=== PATIENT | male | born 1985 | race Caucasian/White ===

== ENCOUNTER → 2024-06-07 07:39 | Outpatient (REF) | payer OTHER, SELFPAY | LOC: HWRAD 07:39 | PROVIDERS: ATTENDING PHYSICIAN Internal Medicine Hematology & Oncology; FAMILY PHYSICIAN Family Medicine | DX: R16.1 Splenomegaly, not elsewhere classified (principal); C77.2 Secondary and unspecified malignant neoplasm of intra-abdominal lymph nodes; C62.11 Malignant neoplasm of descended right testis | CPT/HCPCS: 71260; 74177; Q9967 ==

== ENCOUNTER → 2024-12-06 08:54 | Outpatient (REF) | payer OTHER, SELFPAY | LOC: HWRAD 08:54 | PROVIDERS: ATTENDING PHYSICIAN Internal Medicine Hematology & Oncology; FAMILY PHYSICIAN Family Medicine | DX: C62.11 Malignant neoplasm of descended right testis (principal); R16.1 Splenomegaly, not elsewhere classified; C77.2 Secondary and unspecified malignant neoplasm of intra-abdominal lymph nodes; Z51.81 Encounter for therapeutic drug level monitoring | CPT/HCPCS: 71046 ==

== ENCOUNTER → 2025-06-20 07:24 | Outpatient (REF) | payer OTHER, SELFPAY | LOC: RAD 07:24 | PROVIDERS: ATTENDING PHYSICIAN Internal Medicine Hematology & Oncology; FAMILY PHYSICIAN Family Medicine | DX: C62.11 Malignant neoplasm of descended right testis (principal); R16.1 Splenomegaly, not elsewhere classified; C77.2 Secondary and unspecified malignant neoplasm of intra-abdominal lymph nodes; Z51.81 Encounter for therapeutic drug level monitoring | CPT/HCPCS: 71260; 74177; Q9967 ==

== ENCOUNTER → 2025-06-28 09:54 | Outpatient (REF) | payer OTHER, SELFPAY | LOC: HWRAD 09:54 | PROVIDERS: ATTENDING PHYSICIAN Family Medicine | DX: M25.551 Pain in right hip (principal); R10.31 Right lower quadrant pain | CPT/HCPCS: 73502; 76882 ==

== ENCOUNTER → 2025-07-05 10:51 | Outpatient (REF) | payer OTHER, SELFPAY | LOC: HWRAD 10:51 | PROVIDERS: ATTENDING PHYSICIAN Physician Assistant; FAMILY PHYSICIAN Family Medicine | DX: M25.531 Pain in right wrist (principal); M79.641 Pain in right hand | CPT/HCPCS: 73110; 73130 ==

== ENCOUNTER → 2025-09-13 10:52 | Outpatient (REF) | payer OTHER, SELFPAY | LOC: MRI 3T 10:52 | PROVIDERS: ATTENDING PHYSICIAN Family Medicine | DX: S32.591A Other specified fracture of right pubis, initial encounter for closed fracture (principal) | CPT/HCPCS: 72197; A9575 ==